=== PATIENT | female | born 1965 | race Caucasian/White ===

== ENCOUNTER → 2018-05-17 | Day surgery (SDC) | payer OTHER ==
--- NOTE | 2018-05-19 08:34 | PATH ---
Cytology Non-Gynecological Report Patient Name: FREEMAN GOMEZ [facility]. Rec. #: [id number] /Age/Gender: 1965 (Age: 52) / F Account: [id number] Location: RADIOLOGY Taken: 05/17/2018 Received: 05/17/2018 Reported: 05/19/2018 Physicians: Cathleen Buenrostro M.D. Specimen(s) Received RIGHT THYROID 3.10 X 1.17 X 1.40CM. Clinical History Thyroid nodule Final Diagnosis THYROID, RIGHT, FINE NEEDLE ASPIRATION: SATISFACTORY FOR EVALUATION [place] CLASS II: BENIGN CYTOLOGIC FINDINGS ARE CONSISTENT WITH A BENIGN FOLLICULAR NODULE. SMALL FOLLICULAR CELLS, HURTHLE CELLS, MACROPHAGES, AND COLLOID PRESENT. Electronically Signed Nakia Castellanos M.D. Gross Description Received are eight direct smears, four of which are air-dried and Diff-Quik stained, and four of which are alcohol fixed and Pap stained. Also received is 20 ml of bloody formalin from which one cellblock is prepared.
== END | disposition home or self-care (01) ==
LOC: JRADIR 08:25
PROVIDERS: ATTEND Internal Medicine Endocrinology, Diabetes & Metabolism
PROC: 0G9G3ZX Drainage of Left Thyroid Gland Lobe, Percutaneous Approach, Diagnostic (ICD-10-PCS; principal; 2018-05-17)
DX: E04.1 Nontoxic single thyroid nodule (principal)
CPT/HCPCS: 76942; 88173; 88305-TC

== ENCOUNTER 2019-11-15 01:54 | Emergency (ER) | payer OTHER ==
--- NOTE | 2019-11-15 02:15 | PDOC ---
History of Present Illness - General Stated Complaint: R HAND SWELLING Time Seen by Provider: 11/15/19 02:15 - History of Present Illness Initial Comments: HPI: 54-year-old female with history of hypertension and hypothyroidism presenting with right hand redness and swelling. Patient reports she first felt itching in her left hand Wednesday at 3 AM. The area has worsening redness and swelling that she noticed last night with streaking extending up her arm. Denies recent trauma to the area. May have been bitten by an insect but denies significant outdoor exposure. No new known exposures: no new lotions, detergents, clothing, animals, or environments. No fevers, chills, chest pain, or shortness of breath. ROS: Constitutional: no fever, no chills HEENT: no throat pain, no dysphagia Cardiovascular: no chest pain, no palpitations Respiratory: no cough, no shortness of breath Gastrointestinal: no abdominal pain, no nausea Genitourinary: no dysuria, no hematuria Musculoskeletal: no myalgia, no arthralgia Skin: +rash, +itching Neurologic: no headache, no weakness PE: General: Awake, alert, and fully oriented, in no acute distress Head: No signs of trauma Eyes: EOMI, sclera anicteric ENT: Moist mucus membranes Neck: Normal ROM, supple Lungs: Lungs clear, Normal breath sounds Cardio: Regular rhythm, S1 and S2 present Abdomen: Soft, nontender. No guarding, no rebound, no masses Extremities: Normal range of motion, Distal pulses present SKIN: Extensor surface of hand erythematous/indurated/warm overlying the second digit and metacarpals with lymphangitic streaking up the forearm, pinpoint lesion noted on lateral aspect of second digit which may represent possible injection site such as from an insect bite Otherwise warm, Dry, normal turgor Neurologic: Cranial nerves II through XII grossly intact. Normal speech ED Course/MDM: DDX including but not limited to cellulitis, abscess, paronychia, felon, compartment syndrome Labs Clindamycin As we are without a hand specialist at this hospital, decision made to transfer patient to another facility as we are concerned for possible hand abscess 11/15/19 02:15 Dr. Clayton discussed case with hand specialist at [place]. Patient accepted for transfer CBC WBC 8.8 K/mm3 (4.0-10.0) 11/15/19 03:15 RBC 4.87 M/mm3 (3.60-5.2) 11/15/19 03:15 Hgb 13.0 GM/dL (10.7-15.3) 11/15/19 03:15 Hct 40.3 % (32.4-45.2) 11/15/19 03:15 MCV 82.9 fl (80-96) 11/15/19 03:15 MCH 26.8 pg (25.7-33.7) 11/15/19 03:15 MCHC 32.3 g/dl (32.0-36.0) 11/15/19 03:15 RDW 15.1 % (11.6-15.6) 11/15/19 03:15 Plt Count 253 K/MM3 (134-434) 11/15/19 03:15 MPV 9.2 fl (7.5-11.1) 11/15/19 03:15 Absolute Neuts (auto) 4.8 K/mm3 (1.5-8.0) 11/15/19 03:15 Neutrophils % 54.8 % (42.8-82.8) D 11/15/19 03:15 Lymphocytes % 34.2 % (8-40) D 11/15/19 03:15 Monocytes % 7.6 % (3.8-10.2) 11/15/19 03:15 Eosinophils % 3.1 % (0-4.5) D 11/15/19 03:15 Basophils % 0.3 % (0-2.0) 11/15/19 03:15 Nucleated RBC % 0 % (0-0) 11/15/19 03:15 No leukocytosis CMP Sodium 142 mmol/L (136-145) 11/15/19 03:15 Potassium 4.0 mmol/L (3.5-5.1) 11/15/19 03:15 Chloride 108 mmol/L (98-107) H 11/15/19 03:15 Carbon Dioxide 27 mmol/L (21-32) 11/15/19 03:15 Anion Gap 6 MMOL/L (8-16) L 11/15/19 03:15 BUN 15.1 mg/dL (7-18) 11/15/19 03:15 Creatinine 1.0 mg/dL (0.55-1.3) 11/15/19 03:15 Est GFR (CKD-EPI)AfAm 73.45 11/15/19 03:15 Est GFR (CKD-EPI)NonAf 63.37 11/15/19 03:15 Random Glucose 107 mg/dL (74-106) H 11/15/19 03:15 Calcium 9.1 mg/dL (8.5-10.1) 11/15/19 03:15 Total Bilirubin 0.1 mg/dL (0.2-1) L 11/15/19 03:15 AST 20 U/L (15-37) 11/15/19 03:15 ALT 27 U/L (13-61) 11/15/19 03:15 Alkaline Phosphatase 119 U/L (45-117) H 11/15/19 03:15 Total Protein 7.9 g/dl (6.4-8.2) 11/15/19 03:15 Albumin 3.7 g/dl (3.4-5.0) 11/15/19 03:15 Electrolytes unremarkable Hand xray as read by radiology: "Right hand: Swelling. Pain. 3 views of the right hand to been submitted. There is no history of trauma given. There is dorsal soft tissue swelling. A gross fracture or subluxation is not seen. There is no sign of blastic or lytic changes. A foreign body or soft tissue air is visualized. If symptoms persist, further imaging may be of help. Reported By: Amrit Gay MD 11/15/19 [id number] " Past History - Past Medical History Allergies/Adverse Reactions: Allergies Allergy/AdvReac Type Severity Reaction Status Date / Time No Known Allergies Allergy Verified 11/15/19 02:16 Home Medications: Ambulatory Orders Levothyroxine [Synthroid -] 25 mcg PO DAILY 11/15/19 Losartan Potassium 100 mg PO DAILY 11/15/19 - Immunization History Immunization Up to Date: Yes - Psycho Social/Smoking Cessation Hx Smoking History: Never smoked Hx Alcohol Use: No ED Treatment Course - LABORATORY CBC & Chemistry Diagram: 11/15/19 03:15 11/15/19 03:15 Discharge - Discharge Information Problems reviewed: Yes Clinical Impression/Diagnosis: Cellulitis of hand, right Condition: Guarded Disposition: TRANSFER ACUTE CARE/OTHER HOSP - Follow up/Referral Referrals: Pinky Horton MD [Primary Care Provider] - - Patient Discharge Instructions - Post Discharge Activity
--- NOTE | 2019-11-15 02:17 | PDOC ---
Attending Attestation - Resident Resident Name: Charity Remy - ED Attending Attestation I have performed the following: I have examined & evaluated the patient, The case was reviewed & discussed with the resident, I agree w/resident's findings & plan - HPI HPI: 11/15/19 03:26 see resident hpi - Physicial Exam PE: 11/15/19 03:26 agree with resident exam - Medical Decision Making 11/15/19 03:30 54-year-old female with exam possibly consistent with hand abscess, extensor surface Will transfer to [facility] for evaluation, patient accepted by hand surgery to the emergency department for evaluation IV established, x-ray done and clindamycin administered
[2019-11-15 02:19] VITALS: BMI 30.2
[2019-11-15] MEDS ORDERED: ACETAMINOPHEN 325 MG TABLET (FP) PO ONE (02:41)
[2019-11-15] MEDS ORDERED: CLINDAMYCIN 600MG PREMIX IVPB 600 MG/50 ML BAG IVPB ONE ×2 (02:42→02:48)
[2019-11-15] MEDS ORDERED: ACETAMINOPHEN 325 MG TABLET (FP) ONE (02:48)
[2019-11-15 03:28] LABS: BASO % 0.3 % (0-2.0); EOS % 3.1 % (0-4.5); HEMATOCRIT 40.3 % (32.4-45.2); LYMPH % 34.2 % (8-40); MCH 26.8 pg (25.7-33.7); MCHC 32.3 g/dl (32.0-36.0); MEAN CELL VOLUME 82.9 fl (80-96); MEAN PLT VOLUME 9.2 fl (7.5-11.1); MONO % 7.6 % (3.8-10.2); NEUT % 54.8 % (42.8-82.8); PLATELET COUNT 253 K/MM3 (134-434); RBC 4.87 M/mm3 (3.60-5.2); RDW 15.1 % (11.6-15.6); WHITE BLOOD COUNT 8.8 K/mm3 (4.0-10.0)
[2019-11-15 03:36] VITALS: BP 131/86; PULSE 86
[2019-11-15 03:40] LABS: INR 1.05 (0.83-1.09); PROTHROMBIN TIME (PATIENT) 12.4 SEC (9.7-13.0)
[2019-11-15 03:47] VITALS: TEMP 98.3
[2019-11-15 03:55] LABS: ALBUMIN 3.7 g/dl (3.4-5.0); BILIRUBIN,TOTAL 0.1 mg/dL (0.2-1); BLOOD UREA NITROGEN 15.1 mg/dL (7-18); CALCIUM 9.1 mg/dL (8.5-10.1); TOT PROT 7.9 g/dl (6.4-8.2)
== END 2019-11-15 03:47 | disposition short-term general hospital (02) ==
LOC: JER 01:54
DX: L03.113 Cellulitis of right upper limb (principal); I10 Essential (primary) hypertension; E03.9 Hypothyroidism, unspecified
CPT/HCPCS: 36415; 73130-TC-RT-FY; 80053; 85025; 85610; 99283-25

== ENCOUNTER 2020-09-03 14:07 | Emergency (ER) | payer OTHER ==
--- NOTE | 2020-09-03 14:16 | PDOC ---
Rapid Medical Evaluation Time Seen by Provider: 09/03/20 14:12 Medical Evaluation: Allergies Allergy/AdvReac Type Severity Reaction Status Date / Time No Known Allergies Allergy Verified 11/15/19 02:16 09/03/20 14:15 54 year old female preDM HTN (last dose this AM) complaining of lightheadness and near syncopal event at work. PE: CTA RRR CN 2-12 grossly intact Plan: EKG Labs Imaging differed to ED provider Pt to precede to ED for further eval
[2020-09-03 14:41] VITALS: BMI 30.2
--- OUTSIDE RECORDS SUMMARY | 2020-09-03 15:14 | XMS ---
:1965 Author Organization [facility] Care Team Providers Name Role Phone FRANCIS VICENTE Unavailable Unavailable Fabiana Berman MD Unavailable Unavailable Fabiana Berman MD Unavailable Unavailable EMERGENCY SERVICE, X Unavailable Unavailable Re-disclosure Warning The records that you are about to access may contain information from federally- assisted alcohol or drug abuse programs. If such information is present, then the following federally mandated warning applies: This information has been disclosed to you from records protected by federal confidentiality rules (42 CFR part 2). The federal rules prohibit you from making any further disclosure of this information unless further disclosure is expressly permitted by the written consent of the person to whom it pertains or as otherwise permitted by 42 CFR part 2. A general authorization for the release of medical or other information is NOT sufficient for this purpose. The Federal rules restrict any use of the information to criminally investigate or prosecute any alcohol or drug abuse patient.The records that you are about to access may contain highly sensitive health information, the redisclosure of which is protected by Article 27-F of the [place] Public Health law. If you continue you may haveaccess to information: Regarding HIV / AIDS; Provided by facilities licensed or operated by the [facility] Office of Mental Health; or Provided by the [facility] Office for People With Developmental Disabilities. If such information is present, then the following [facility] mandated warning applies: This information has been disclosed to you from confidential records which are protected by state law. State law prohibits you from making any further disclosure of this information without the specific written consent of the person to whom it pertains, or as otherwise permitted by law. Any unauthorized further disclosure in violation of state law may result in a fine or senior care sentence or both. A general authorization for the release of medical or other information is NOT sufficient authorization for further disclosure. Allergies and Adverse Reactions Type Description Substance Reaction Status Data Source(s ) Drug allergy No Known Drug No Known Drug [facility] Allergies Allergies Health Care [facility] Encounters Encounter Providers Location Date Indications Data Source(s ) Inpatient Attender: 11/15/2019 RIGHT HAND [place] Co unty JULES, 07:33:00 AM [facility] VADIMAdmitter: EST - Corporatio n JULES, 11/17/2019 VADIMReferrer: 01:20:00 PM FRANCIS VICENTE EST RIGHT HAND LYMPHANGITIS Patient admitted. Emergency Attender: JULES, 11/15/2019 SWOLLEN FINGER [facility] VADIMAttender: 04:19:00 AM EST [facility] EMERG[facility] SERVICE, Corpor ation XAdmitter: FRANCIS VICENTE SWOLLEN FINGER INPATIENT Attender: Fabiana [place] 11/15/2019 [place] (Helder Berman MD [facility] 12:00:00 AM EST [facility] - 11/15/2019 [facility]) 12:00:00 AM EST Attender: [facility] 11/15/2019 CHARLEY ( Helder Berman MD 12:00:00 AM EST [facility] ) Medications Medication Brand Start Product Dose Route Administrative Pharmacy [facility] Indications Reaction Description Data Name Date Form Instructions Instructions Source(s) 0.9% NaCl 0.9% 999 UNK active 0.9% NaCl [facility] IV NaCl 2019 mL IV [facility] IV 05:14: 1000 mL; IV Health 47 AM rate: [facility] EST over 30 Corporatio minutes n Medication administered onsite Insurance Providers Payer name Policy type Policy ID Covered Covered libertarian's Policy P fredis / Coverage libertarian ID relationship to Ann Inf ormation type ann LOCAL 2027 - [id number] [facility] Problems, Conditions, and Diagnoses Code Display Name Description Problem Type Effective Data Sour ce(s) Dates E03.9 Hypothyroidism, HYPOTHYROIDISM, Diagnosis 11/17/2019 [place] unspecified UNSPECIFIED 01:20:00 PM [facility] EST Care Corporati on I10 Essential ESSENTIAL Diagnosis 11/17/2019 [place] (primary) (PRIMARY) 01:20:00 PM [facility] hypertension HYPERTENSION EST Care Corpo ration I89.1 Lymphangitis LYMPHANGITIS Diagnosis 11/15/2019 [facility] r 07:33:00 AM [facility] EST Care Corporati on Surgeries/Procedures Procedure Description Date Indications Data Source(s) SUBSEQUENT HOSPITAL CARE 11/16/2019 NEX TGEN ([place] 12:00:[facility] AM [facility] 12:00:00 AM EST INPATIENT CONSULTATION 11/15/2019 NEXTG EN ([place] 12:00:00 AM EST [facility] 12:00:00 AM EST Results ID Date Data Source [id number] 06/27/2020 09:00:00 PM EDT [facility] Name Value Range Interpretation Description Data Sup porting Code Source(s) Document(s ) SARS [facility] coronavirus 2 RNA [Presence] in Respiratory specimen by JAYDE with probe detection This lab was ordered by [facility] COVID-19 and reported by [facility]. ID Date Data Source [id number] 06/10/2020 10:00:00 PM EDT [facility] Name Value Range Interpretation Code Description Data Violeta rce(s) Supporting Document(s ) SARS-CoV-2 [facility] BY PCR This lab was ordered by IM[facility] Darnell C and reported by [employer]. ID Date Data Source [id number] 06/06/2020 12:00:00 AM EDT [facility] Name Value Range Interpretation Code Description Data Violeta rce(s) Supporting Document(s ) 2018-nCoV [facility] RNA XXX JAYDE+probe- Imp This lab was ordered by [employer] and reported by [employer] ID Date Data Source [id number] 04/26/2020 12:00:00 AM EDT [facility] Name Value Range Interpretation Code Description Data Violeta rce(s) Supporting Document(s ) 2018-nCoV [facility] RNA XXX JAYDE+probe- Imp This lab was ordered by [facility] and reported by [employer]. ID Date Data Source [id number] 11/17/2019 07:14:00 AM EST [facility] [id number] Corporation Name Value Range Interpretation Description Data Sup porting Code Source(s) Document(s ) Leukocytes 8.3 k/mm3 4.8-10 <td> 11/17/2019 [place] [#/volume] in .8 07:14</td><td> [facility] Blood by k/mm3 WBC </td><td> Health Care Automated count Corporation 8.3
(4.8-10.8) k/mm3 </td> Erythrocytes 4.65 m/mm3 3.90-5 <td> 11/17/2019 [facility] [#/volume] in .20 07:14</td><td> [facility] Blood m/mm3 RBC </td><td> Health Care Danger 4.65
(3.90-5.20) m/mm3 </td> Hemoglobin 12.3 g/dL 12.0-1 <td> 11/17/2019 [place] [Mass/volume] 6.0 07:14</td><td> [facility] in Blood g/dL HGB </td><td> Health Care Corporation 12.3
(12.0-16.0) g/dL </td> Hematocrit 39.8 % 37.0-4 <td> 11/17/2019 [place] [Volume 7.0 % 07:14</td><td> [facility] Fraction] of HCT </td><td> Health Care Blood by Corporation Automated count 39.8
(37.0-47.0) % </td> Erythrocyte 85.6 fL 81.0-9 <td> 11/17/2019 [place] mean 9.0 fL 07:14</td><td> [facility] corpuscular MCV </td><td> Health Care volume [[employer] Corporation volume] by 85.6 Automated count
(81.0-99.0) fL </td> Erythrocyte 26.5 pg 27.0-3 <td> 11/17/2019 [place] mean 1.5 pg 07:14</td><td> [facility] corpuscular [facility] Health Care hemoglobin </td><td><[employer] [Entitic mass] raph by Automated styleCode="Bold count "> 26.5 L </paragraph>
(27.0-31.5) pg </td> Erythrocyte 30.9 % 32.0-3 <td> 11/17/2019 [place] mean 6.0 % 07:14</td><td> [facility] corpuscular [facility] Health Care hemoglobin </td><td><[employer] concentration raph [Mass/volume] styleCode="Bold in Blood from "> Fetus by 30.9 Automated count L </paragraph>
(32.0-36.0) % </td> Platelets 247 k/mm3 160-41 <td> 11/17/2019 [place] [#/volume] in 0 07:14</td><td> [facility] Blood by k/mm3 Platelet Count Health Care Automated count </td><td> Danger 247
(160-410) k/mm3 </td> Erythrocyte 15.0 % 11.5-1 <td> 11/17/2019 [place] distribution 4.5 % 07:14</td><td> County width [Entitic RDW Health Care volume] by </td><td><[employer] Automated count raph styleCode="Bold "> 15.0 H </paragraph>
(11.5-14.5) % </td> Platelet mean 11.2 fL 9.8-12 <td> 11/17/2019 [facility] r volume [Entitic .8 fL 07:14</td><td> County volume] in MPV </td><td> Health Care Blood by Danger Automated count 11.2
(9.8-12.8) fL </td> Lymphocytes 28.3 % 17.0-5 <td> 11/15/2019 [place] [#/volume] in 0.0 % 06:15</td><td> [facility] Blood by Lymphocytes Health Care Automated count </td><td> Corporation 28.3
(17.0-50.0) % </td> Immature 0.1 % 0.0-0. <td> 11/15/2019 [place] granulocytes/10 5 % 06:15</td><td> County 0 leukocytes in IG% </td><td> [facility] Blood by Danger Automated count 0.1
(0.0-0.5) %
The IG fraction represents metamyelocytes, myelocytes and/or
promyelocytes and is only reported as part of the automated
differential when found at a percentage of less than 6.
If higher than 6%, a manual differential will be performed.

(0.0-0.5) % </td> Monocytes/Leuko 7.1 % 0.0-11 <td> 11/15/2019 [facility] cytes [Pure .0 % 06:15</td><td> [facility] number Monocytes. Health Care fraction] in </td><td> [facility] Blood by Automated count 7.1
(0.0-11.0) % </td> Basophils 0.2 % 0.0-2. <td> 11/15/2019 [place] [#/volume] in 0 % 06:15</td><td> [facility] Blood by Basophils [facility] Automated count </td><td> Danger 0.2
(0.0-2.0) % </td> Basophils+Eosin 2.5 % 0.0-5. <td> 11/15/2019 [facility] ophils+Monocyte 0 % 06:15</td><td> [facility] s [#/volume] in Eosinophils [facility] Blood by </td><td> Danger Automated count 2.5
(0.0-5.0) % </td> Glucose 106 mg/dL 70-105 <td> 11/17/2019 [place] [Mass/volume] mg/dL 07:14</td><td> [facility] in Blood Glucose-Serum [facility] </td><td><shreyas Danger raph styleCode="Bold "> 106 H </paragraph>
(70-105) mg/dL </td> Neutrophils [#] 61.8 % 40.0-7 <td> 11/15/2019 [facility] in Body fluid 6.0 % 06:15</td><td> County by Manual count Neutrophils Health Care </td><td> Danger 61.8
(40.0-76.0) % </td> Carbon dioxide, 24 mEq/L 22-30 <td> 11/17/[address] [facility] ter total mEq/L 07:14</td><td> County [Moles/volume] CO2 </td><td> Health Car e in Serum or Corporation Plasma 24
(22-30) mEq/L </td> Potassium 3.9 mEq/L 3.5-5. <td> 11/17/2019 [place] [Moles/volume] 1 07:14</td><td> County in Serum or mEq/L Potassium-Serum Health Care Plasma </td><td> Danger 3.9
(3.5-5.1) mEq/L </td> Urea nitrogen 11 mg/dL 6-22 <td> 11/17/2019 [facility] r [Mass/volume] mg/dL 07:14</td><td> County in Blood BUN </td><td> Health Care Corporation 11
(6-22) mg/dL </td> Sodium 140 mEq/L 135-14 <td> 11/17/2019 [place] [Moles/volume] 5 07:14</td><td> County in Serum or mEq/L Sodium-Serum Health Care Plasma </td><td> Danger 140
(135-145) mEq/L </td> Creatinine 0.75 mg/dL 0.57-1 <td> 11/17/2019 [place] [Moles/volume] .11 07:14</td><td> County in Serum or mg/dL Creatinine. Health Care Plasma </td><td> Danger 0.75
(0.57-1.11) mg/dL </td> Chloride 110 mEq/L 98-107 <td> 11/17/2019 [place] [Moles/volume] mEq/L 07:14</td><td> County in Serum or Chloride Health Care Plasma </td><td><[employer]reyas Corporation raph styleCode="Bold "> 110 H </paragraph>
(98-107) mEq/L </td> Bilirubin.total 0.2 mg/dL 0.2-1. <td> 11/15/2019 [facility] [Mass/volume] 3 06:15</td><td> County in Blood mg/dL Bilirubin - [employer] </td><td> 0.2
(0.2-1.3) mg/dL </td> Alanine 17 U/L 6-55 <td> 11/15/2019 [place] aminotransferas U/L 06:15</td><td> County e [Enzymatic ALT (SGPT) Health Care activity/volume </td><td> Danger ] in Serum or Plasma 17
(6-55) U/L </td> Albumin 3.9 g/dL 3.4-4. <td> 11/15/2019 [place] [Mass/volume] 8 g/dL 06:15</td><td> [facility] in Serum or Albumin Health Care Plasma </td><td> Danger 3.9
(3.4-4.8) g/dL </td> Aspartate 18 U/L 4-35 <td> 11/15/2019 [place] aminotransferas U/L 06:15</td><td> County e [Enzymatic AST (SGOT) Health Care activity/volume </td><td> Danger ] in Serum or Plasma 18
(4-35) U/L </td> Proteins - 7.6 g/dL 6.4-8. <td> 11/15/2019 [place] Total 3 g/dL 06:15</td><td> [facility] Proteins - [employer] </td><td> 7.6
(6.4-8.3) g/dL </td> Globulin 3.7 gm/dL 2.9-4. <td> 11/15/2019 [place] [Mass/volume] 0 06:15</td><td> [facility] in Serum gm/dL Globulin Health Care </td><td> Danger 3.7
(2.9-4.0) gm/dL </td> Hemolysis index No <td> 11/17/2019 [facility] of Serum or Hemolysis 07:14</td><td> [facility] Plasma Hemolysis Index Health Care </td><td> Danger No Hemolysis
</td> Anion gap in 6 mEq/L 7-13 <td> 11/17/2019 [place] Serum or Plasma mEq/L 07:14</td><td> [facility] Anion Gap Health Care </td><td><shreyas Corporation raph styleCode="Bold "> 6 L </paragraph>
(7-13) mEq/L </td> Calcium 8.6 mg/dL 8.6-10 <td> 11/17/2019 [place] [Mass/volume] .2 07:14</td><td> [facility] in Blood mg/dL Calcium [facility] </td><td> Danger 8.6
(8.6-10.2) mg/dL </td> Lipemic index No Lipemia <td> 11/17/2019 [facility] er of Serum or 07:14</td><td> [facility] Plasma Lipemia Index Health [facility] </td><td> Danger No Lipemia
</td> Icteric index Not <td> 11/17/2019 [facility] of Serum or Icteric 07:14</td><td> [facility] Plasma Icteric Index Health [facility] </td><td> Danger Not Icteric
</td> aPTT panel - 31.4 secs 25.0-3 <td> 11/15/2019 [place] Platelet poor 2.0 06:15</td><td> [facility] plasma secs Partial [facility] Thromboplastin [facility] Time </td><td> 31.4
(25.0-32.0) secs </td> Appearance of Clear <td> 11/15/2019 [facility] r Urine 06:15</td><td> [facility] Appearance Health Care </td><td> Danger Clear
(CLEAR) </td> Specific 1.013 {} 1.000- <td> 11/15/2019 [place] gravity of 1.035 06:15</td><td> [facility] Urine by Test Specific Health Care strip [employer] </td><td> 1.013
(1.000-1.035) </td> Prothrombin 11.0 secs 9.8-12 <td> 11/15/2019 [place] time (PT) .0 06:15</td><td> County secs Prothrombin Health Care Time. Corporation </td><td> 11.0
(9.8-12.0) secs </td> Protein Negative <td> 11/15/2019 [place] [Presence] in 06:15</td><td> [facility] Urine by Protein Health Care Automated test Qualitative Corporation strip </td><td> Negative
(NEGATIVE) </td> Glucose Negative <td> 11/15/2019 [place] [Presence] in 06:15</td><td> [facility] Urine by Test Glucose_ Health Care strip </td><td> Corporation Negative
(NEGATIVE) </td> Urobilinogen 0.2 mg/dL 0.0-2. <td> 11/15/2019 [place] [Presence] in 0 06:15</td><td> [facility] Urine by mg/dL Urobilinogen Health Care Automated test </td><td> Corporation strip 0.2
(0.0-2.0) mg/dL </td> Leukocyte Negative <td> 11/15/2019 [place] esterase 06:15</td><td> [facility] [Presence] in Leukocytes Health Care Urine by Test Esterase Corporation strip </td><td> Negative
(NEGATIVE) </td> Erythrocytes 2 /HPF 0-2 <td> 11/15/2019 [place] [#/area] in /HPF 06:15</td><td> [facility] Urine sediment RBC </td><td> Health Car e by Automated Corporation count 2
(0-2) /HPF </td> Nitrite Negative <td> 11/15/2019 [place] [Presence] in 06:15</td><td> [facility] Urine by Test Nitrites Health Care strip </td><td> Corporation Negative
(NEGATIVE) </td> Leukocytes 1 /HPF 0-5 <td> 11/15/2019 [place] [Presence] in /HPF 06:15</td><td> [facility] Urine by WBC </td><td> Health Care Automated Corporation 1
(0-5) /HPF </td> Epithelial RARE <td> 11/15/2019 [place] cells [#/area] <= FEW 06:15</td><td> [facility] in Urine Epithelial Health Care sediment by Cells Corporation Automated count </td><td> RARE
/LPF
<= FEW

/LPF </td> Bacteria NONE SEEN <td> 11/15/2019 [place] [#/area] in 06:15</td><td> [facility] Urine sediment Bacteria Health Care by Microscopy </td><td> Corporation high power field NONE SEEN
(NONE) /HPF </td> Mucous RARE <td> 11/15/2019 [place] <= FEW 06:15</td><td> [facility] Mucous Health Care </td><td> Corporation RARE
/LPF
<= FEW

/LPF </td> ID Date Data Source [id number] 11/16/2019 11:56:00 AM EST [facility] [id number] Corporation Name Value Range Interpretation Description Data Sup porting Code Source(s) Document(s ) Soft (PACSIMAGE <td> [place] Tissue 11/16/2019 [facility] Mass Body ) Final 11:56</td><td> Care US Result Soft Tissue Corporation Name: Charli GOMEZ Body US MILLARD MRN: </td><td><para [id number] Sex: F graph : styleCode="Tana 1965 lics">(PACSIMA Location: F GE Admitting Physician: )</paragraph>< FRANCIS br/>
JULES Final Result Requesting Physician:

FREDO Name: RORO GOMEZ Exam: US SOFT
TISSUE MASS BODY Sex: F 11/16/2019
12:43 : Grayscale 1965 color Location: F ultrasound of
the right Admitting index finger. Physician: HISTORY: FRANCIS Right hand PISARENKO lymphangitis.
Requesting Comparison: Physician: There are no FREDO prior RORO examinations

available for Exam: US comparison. SOFT TISSUE Findings: MASS BODY There is 11/16/2019 mild 12:43 subcutaneous edema of the

<br/ right second > digit. At Grayscale the area of color clinical ultrasound of concern at the the right dorsal aspect index finger. of the right middle

phalanx, there HISTORY: Right is a 1.1 x 0.3 hand x 0.8 cm lymphangitis. hypoechoic collection

with no Comparison: internal color There are no flow within prior the examinations subcutaneous available for fat. comparison. IMPRESSION: Hypoechoic

<br/ fluid > collection at Findings: the dorsal
aspect of the There is mild right middle subcutaneous phalanx with edema of the surrounding right second subcutaneous digit. At edema
concerning the area of for small clinical abscess. concern at the Resident dorsal aspect Radiologist: of the right Shivam Powers MD
Resident middle Radiologist phalanx, there Attending is a 1.1 x 0.3 Radiologist: x 0.8 cm Aimee hawthorneechoic collection Finalizing
Radiologist: with no Aimee Galloway internal color flow within Transcribed the Date: subcutaneous 11/16/2019 fat. 12:38

Finalized IMPRESSION: Date: 11/16/2019

19:43 Hypoechoic fluid collection at the dorsal aspect of the right
middle phalanx with surrounding subcutaneous edema concerning
for small abscess.

<br/ >
Resident Radiologist: Shivam Powers MD Resident Radiologist
Attending Radiologist: Aimee Galloway MD
Finalizing Radiologist: Aimee Galloway MD
Transcribed Date: 11/16/2019 12:38
Finalized Date: 11/16/2019 19:43

</td > ID Date Data Source [id number] 11/15/2019 06:15:00 AM EST [facility] [id number] Corporation Name Value Range Interpretation Description Data Source(s ) Supporting Code Document(s ) ABO-Rh Type O POS <td> [place] 11/15/2019 [facility] 06:15</td><td> Care ABO-Rh Type Corporation </td><td> O POS
</td> Specimen 11/18/20 <td> [place] expiration 19 23:59 11/15/2019 [facility] date of Blood 06:15</td><td> Care Specimen Corporation Expiration Date </td><td> 11/18/2019 23:59
</td> Antibody NEG <td> [place] Screen 11/15/2019 [facility] 06:15</td><td> Care Antibody Corporation Screen </td><td> NEG
</td> Procedure Vital Signs ID Date Data Source UNK Name Value Range Interpretation Code Description Data Source(s) Diastolic blood 82 {} Normal (applies to 82 {} [place] pressure non-numeric results) Coun ty Health Care Corporati on Systolic blood 127 {} Normal (applies to 127 {} [place] pressure non-numeric results) Coun ty Health Care Corporati on First Respiration 18.0000 {} Normal (applies to 18.0000 {} [place] rate Set non-numeric results) Coun ty Health Care Corporati on Heart rate 87.0000 {} Normal (applies to 87.0000 {} [place] non-numeric results) Coun ty Health Care Corporati on Body temperature 98.1000 {} Normal (applies to 98.1000 {} [place] non-numeric results) Coun ty Health Care Corporati on Diastolic blood 79 {} Normal (applies to 79 {} [place] pressure non-numeric results) Coun ty Health Care Corporati on Systolic blood 123 {} Normal (applies to 123 {} [place] pressure non-numeric results) Coun ty Health Care Corporati on First Respiration 19.0000 {} Normal (applies to 19.0000 {} [place] rate Set non-numeric results) Coun ty Health Care Corporati on Heart rate 80.0000 {} Normal (applies to 80.0000 {} [place] non-numeric results) Coun ty Health Care Corporati on Body temperature 97.5000 {} Normal (applies to 97.5000 {} [place] non-numeric results) Coun ty Health Care Corporati on wt - obtain Normal (applies to {} [facility] results[facility] Coun ty Health Care Corporati on weight - kg 78.6000 {} Normal (applies to 78.6000 {} [facility] Coun ty Health Care Corporati on Patient Treatment Plan of Care Planned Activity Planned Date Details Description Data Source (s) 0.9% NaCl IV 11/15/2019 05:14:47 AM [facility] Care Corporatio n
[2020-09-03 15:49] LABS: BASO % 0.2 % (0-2.0); EOS % 0.4 % (0-4.5); HEMOGLOBIN 12.9 GM/dL (10.7-15.3); LYMPH % 18.4 % (8-40); MCH 26.6 pg (25.7-33.7); MCHC 32.2 g/dl (32.0-36.0); MEAN CELL VOLUME 82.5 fl (80-96); MONO % 4.7 % (3.8-10.2); NEUT % 76.3 % (42.8-82.8); RBC 4.85 M/mm3 (3.60-5.2); RDW 15.1 % (11.6-15.6); WHITE BLOOD COUNT 11.2 K/mm3 (4.0-10.0)
--- NOTE | 2020-09-03 16:12 | PDOC ---
Attending Attestation - Resident Resident Name: SureshBarrera coats - ED Attending Attestation I have performed the following: I have examined & evaluated the patient, The case was reviewed & discussed with the resident, I agree w/resident's findings & plan - HPI HPI: 09/03/20 16:09 54-year-old female with history of hypertension presents with syncope. Patient was in her usual state of good health, was seated at work when she became lightheaded, put her head down, and then awoke on the floor. Bystanders noted she lost consciousness, they eased her to the ground and there was no trauma, she awoke feeling well and feels normal now. No injury, no chest pain or palpitations or shortness of breath, no seizure-like activity. Patient admits that she was slightly emotional prior to onset of symptoms, has had similar episodes in the past with negative work-up. Review of systems is otherwise negative and denies any recent dehydration or infectious complaints, has no exercise limitations at baseline. - Physicial Exam PE: 09/03/20 16:10 Vital signs stable Well-appearing seated comfortably in stretcher Exam is atraumatic Left eye cataracts, otherwise pupils equal round reactive to light, extraocular movements are intact, neck is supple Heart is regular without murmurs, lungs are clear, abdomen benign Neurological exam is normal Psychiatric exam is normal - Medical Decision Making 09/03/20 16:11 54-year-old healthy female presents with syncope with prodrome, possibly triggered by emotional cause, atypical for ACS. Hemodynamically stable here without other red flags on history or physical exam. Labs, urinalysis EKG, chest x-ray Troponin x2, monitoring If above is within normal limits, no indication for emergent admission, can follow-up with her PCP, Dr. Horton. Heart Score/ECG Review #1 ECG reviewed & interpreted by me at: 15:52 General ECG Interpretation: Sinus Rhythm (sinus arrhythmia noted), Normal Rate (66), Normal Intervals (qtc 427), No acute ischemic changes #2 ECG reviewed & interpreted by me at: 17:09 General ECG Interpretation: Sinus Rhythm (sinus arrhythmia noted), Normal Rate (68), Normal Intervals (qtc 418), No acute ischemic changes Discharge - Discharge Information Problems reviewed: Yes Clinical Impression/Diagnosis: Syncope Qualifiers: Syncope type: unspecified Qualified Code(s): R55 - Syncope and collapse Condition: Good - Follow up/Referral Referrals: Pinky Horton MD [Primary Care Provider] - - Patient Discharge Instructions - Post Discharge Activity
--- NOTE | 2020-09-03 16:34 | PDOC ---
History of Present Illness - General Chief Complaint: Syncope/Near Syncope Stated Complaint: SYNCOPE Time Seen by Provider: 09/03/20 14:12 - History of Present Illness Initial Comments: 09/03/20 14:59 54 yo F PMH HTN, hypothyroidism, presenting with syncope. Ms. Mccann states that she was at work talking with her partner when she began to feel lightheaded. Had colleagues open the window, felt sweaty all over. Put her head down on the desk, woke up on the floor with her legs above her head. Colleagues told her that she had passed out, but no fall or trauma. No post-ictal period. Currently asymptomatic. Notes that she had a similar episode 3 years ago. Further reports that she has had a lot of family stress recently. Currently feels well and has no complaints. ROS: GENERAL/CONSTITUTIONAL: endorses prior diaphoresis. Denies fever, chills,generalized weakness HEAD, EYES, EARS, NOSE AND THROAT: denies rhinorrhea, nasal congestion NEUROLOGIC: denies headache, focal weakness, dizziness, seizure, mental status changes CARDIOVASCULAR: endorses lightheadedness, syncope. Denies chest pain, palpitations, irregular heart rate, lightheadedness RESPIRATORY: denies cough, shortness of breath, dyspnea with exertion, wheezing GASTROINTESTINAL: denies abdominal pain, abdominal distension, nausea, vomiting, diarrhea, constipation GENITOURINARY: denies dysuria, frequency, urgency MUSCULOSKELETAL: denies myalgia, arthralgia, joint swelling, back pain, neck pain SKIN: denies rash, itching PE: Gen: well-developed, well-nourished, NAD Neuro: AAOX4, CN II-XII intact HEENT: atraumatic, normocephalic Neck: trachea midline, supple CV: regular rate, regular rhythm, no murmurs, rubs, or gallops Pulm: CTA b/l, no wheezing Abd: soft, non-distended, non-tender MSK: full ROM, intact pulses Extr: no edema, no deformities Skin: warm, dry MDM: Concern for ACS v vasovagal syncope. - CBC, CMP - EKG, trop - CXR - reassess 09/03/20 16:41 Labs unconcerning, trop negative. Will get repeat at 1800, likely dc if negative. 09/05/20 18:00 Repeat trop negative, dc'd for further outpatient management. Past History - Medical History Allergies/Adverse Reactions: Allergies Allergy/AdvReac Type Severity Reaction Status Date / Time No Known Allergies Allergy Verified 09/03/20 14:41 Home Medications: Ambulatory Orders Levothyroxine [Synthroid -] 25 mcg PO DAILY 11/15/19 Losartan Potassium 100 mg PO DAILY 11/15/19 COPD: No HTN: Yes - Immunization History Immunization Up to Date: Yes - Psycho-Social/Smoking History Smoking History: Never smoked *Physical Exam - Vital Signs Last Vital Signs Temp Pulse Resp BP Pulse Ox 98.2 F 80 18 114/78 98 09/03/20 14:30 09/03/20 14:30 09/03/20 14:30 09/03/20 14:30 09/03/20 15:00 ED Treatment Course - LABORATORY CBC & Chemistry Diagram: 09/03/20 15:25 09/03/20 15:25 - ADDITIONAL ORDERS Additional order review: 09/03/20 15:25 RBC 4.85 MCV 82.5 MCHC 32.2 RDW 15.1 Neutrophils % 76.3 D Lymphocytes % 18.4 D Monocytes % 4.7 Eosinophils % 0.4 D Basophils % 0.2 Discharge - Discharge Information Problems reviewed: Yes Clinical Impression/Diagnosis: Syncope Qualifiers: Syncope type: unspecified Qualified Code(s): R55 - Syncope and collapse Condition: Good Disposition: HOME - Follow up/Referral Referrals: Pinky Horton MD [Primary Care Provider] - - Patient Discharge Instructions Patient Printed Discharge Instructions: DI for Syncope in Adults (Fainting) Additional Instructions: Discharge Instructions: You were seen in the emergency department after fainting. No concerning abnormalities were found on your labs or EKG. Continue to take all of your regular home medications See your regular doctor as needed. Seek immediate care for any additional episodes of fainting, falls with injury, chest pain, difficulty breathing, neurological symptoms (eg one-sided weakness or numbness, facial droop, changes in your speech), or any other medical emergency. - Post Discharge Activity
[2020-09-03 16:38] LABS: ALBUMIN 3.8 g/dl (3.4-5.0); ALK PHOS 99 U/L (45-117); ANION GAP 10 MMOL/L (8-16); BILIRUBIN,TOTAL 0.2 mg/dL (0.2-1); BLOOD UREA NITROGEN 17.1 mg/dL (7-18); CALCIUM 9.1 mg/dL (8.5-10.1); CHLORIDE 104 mmol/L (98-107); CO2 24 mmol/L (21-32); CREATININE 0.7 mg/dL (0.55-1.3); GLUCOSE,RANDOM 135 mg/dL (74-106); POTASSIUM 4.7 mmol/L (3.5-5.1); SGOT/AST 26 U/L (15-37); SGPT/ALT 26 U/L (13-61); SODIUM 138 mmol/L (136-145)
[2020-09-03 17:31] LABS: INR 1.17 (0.83-1.09); PROTHROMBIN TIME (PATIENT) 13.8 SEC (9.7-13.0)
[2020-09-03 18:51] LABS: PLATELET ESTIMATE NORMAL
[2020-09-03 18:53] LABS: MEAN PLT VOLUME 10.3 fl (7.5-11.1); PLATELET COUNT 291 K/MM3 (134-434)
--- NOTE | 2020-09-03 19:22 | PDOC ---
*Physical Exam - Vital Signs Last Vital Signs Temp Pulse Resp BP Pulse Ox 98.2 F 80 18 114/78 98 09/03/20 14:30 09/03/20 14:30 09/03/20 14:30 09/03/20 14:30 09/03/20 15:00 ED Treatment Course - LABORATORY CBC & Chemistry Diagram: 09/03/20 15:25 09/03/20 15:25 - ADDITIONAL ORDERS Additional order review: Laboratory Results 09/03/20 09/03/20 15:25 15:25 PT with INR 13.80 H INR 1.17 H Sodium 138 Potassium 4.7 Chloride 104 Carbon Dioxide 24 Anion Gap 10 BUN 17.1 Creatinine 0.7 Est GFR (CKD-EPI)AfAm 113.05 Est GFR (CKD-EPI)NonAf 97.54 Random Glucose 135 H Calcium 9.1 Total Bilirubin 0.2 AST 26 ALT 26 Alkaline Phosphatase 99 Creatine Kinase 210 H Creatine Kinase Index No Result Required. CK-MB (CK-2) No Result Required. Troponin I < 0.02 Total Protein 8.0 Albumin 3.8 TSH 1.93 Free T4 1.12 09/03/20 15:25 RBC 4.85 MCV 82.5 MCHC 32.2 RDW 15.1 MPV 10.3 D Neutrophils % 76.3 D Lymphocytes % 18.4 D Monocytes % 4.7 Eosinophils % 0.4 D Basophils % 0.2 Medical Decision Making - Medical Decision Making 09/03/20 19:18 Sign out received from Dr Suresh. Romi Mccann is a 54yo woman with a PMH of HTN, hypothyroidism who presented with an episode of syncope at work after an emotional event. ED workup so far has been unremarkable. Pending repeat troponin, plan to discharge home if negative. 09/03/20 - Repeat trop negative - Will d/c home Discussed with Dr Milagros Sorto PGY3 Discharge - Discharge Information Problems reviewed: Yes Clinical Impression/Diagnosis: Syncope Qualifiers: Syncope type: unspecified Qualified Code(s): R55 - Syncope and collapse Condition: Good Disposition: HOME - Admission No - Follow up/Referral Referrals: Pinky Horton MD [Primary Care Provider] - - Patient Discharge Instructions Patient Printed Discharge Instructions: DI for Syncope in Adults (Fainting) Additional Instructions: Discharge Instructions: You were seen in the emergency department after faininting. No concerning abnormalities were found on your labs or EKG. Continue to take all of your regular home medications See your regular doctor as needed. Seek immediate care for any additional episodes of fainting, falls with injury, chest pain, difficulty breathing, neurological symptoms (eg one-sided weakness or numbness, facial droop, changes in your speech), or any other medical emergency. - Post Discharge Activity
[2020-09-03 19:52] VITALS: BP 135/70; PULSE 72; TEMP 97.9
--- NOTE | 2020-09-04 09:52 | EKG ---
Test Reason : Blood Pressure : / mmHG Vent. Rate : 066 BPM Atrial Rate : 066 BPM P-R Int : 150 ms QRS Dur : 082 ms QT Int : 408 ms P-R-T Axes : 063 055 040 degrees QTc Int : 427 ms SINUS RHYTHM WITH MARKED SINUS ARRHYTHMIA NONSPECIFIC ST ABNORMALITY ABNORMAL ECG WHEN COMPARED WITH ECG OF 16-JAN-2015 04:52, NO SIGNIFICANT CHANGE WAS FOUND Confirmed by MD Jerry, Thang ([id number]) on 09/04/2020 9:51:44 AM Referred By: Confirmed By:Thang Edwards MD
--- NOTE | 2020-09-04 09:52 | EKG ---
Test Reason : Blood Pressure : / mmHG Vent. Rate : 068 BPM Atrial Rate : 068 BPM P-R Int : 152 ms QRS Dur : 076 ms QT Int : 394 ms P-R-T Axes : 071 062 042 degrees QTc Int : 418 ms NORMAL SINUS RHYTHM WITH SINUS ARRHYTHMIA POSSIBLE LEFT ATRIAL ENLARGEMENT BORDERLINE ECG WHEN COMPARED WITH ECG OF 03-SEP-2020 15:52, NO SIGNIFICANT CHANGE WAS FOUND Confirmed by MD Jerry, Thang ([id number]) on 09/04/2020 9:51:35 AM Referred By: Confirmed By:Thang Edwards MD
== END 2020-09-03 20:45 | disposition home or self-care (01) ==
LOC: JER 14:07
DX: R55 Syncope and collapse (principal)
CPT/HCPCS: 36415; 71045-TC-FY; 80053; 82550; 82553; 84439; 84443; 84484; 85025; 85610; 93005; 93010; 99285-25

== ENCOUNTER 2022-10-18 06:17 | Emergency (ER) | payer OTHER ==
[2022-10-18 06:38] VITALS: BP 146/73; PULSE 92; RESP 20; TEMP 97.7; BMI 29.4
[2022-10-18 08:47] LABS: BASO % 0.6 % (0-2.0); EOS % 0.2 % (0-4.5); HEMATOCRIT 41.3 % (32.4-45.2); HEMOGLOBIN 13.4 GM/dL (10.7-15.3); LYMPH % 20.8 % (8-40); MCH 27.2 pg (25.7-33.7); MCHC 32.4 g/dl (32.0-36.0); MEAN CELL VOLUME 83.8 fl (80-96); MEAN PLT VOLUME 9.7 fl (7.5-11.1); MONO % 4.8 % (3.8-10.2); NEUT % 73.6 % (42.8-82.8); PLATELET COUNT 250 10^3/uL (134-434); RBC 4.92 M/mm3 (3.60-5.2); RDW 14.6 % (11.6-15.6); WHITE BLOOD COUNT 8.8 K/mm3 (4.0-10.0)
[2022-10-18 08:52] LABS: ALBUMIN 3.8 g/dl (3.4-5.0); BLOOD UREA NITROGEN 16.3 mg/dL (7-18)
[2022-10-18 08:55] LABS: CREATININE 0.8 mg/dL (0.55-1.3)
[2022-10-18 08:57] LABS: BILIRUBIN,TOTAL 0.2 mg/dL (0.2-1)
[2022-10-18 09:47] LABS: EPI CELLS 1 /uL (0-25.1); HYALINE CASTS 0 /uL (0-3.1); PH,URINE 5.5 (5.0-8.0); URINE APPEARANCE CLEAR; URINE BACTERIA 7 /uL (0-1359); URINE BILIRUBIN NEGATIVE (NEGATIVE); URINE COLOR YELLOW; URINE GLUCOSE (UA) NEGATIVE (NEGATIVE); URINE KETONE NEGATIVE (NEGATIVE); URINE LEUK ESTERASE NEGATIVE (NEGATIVE); URINE NITRITE NEGATIVE (NEGATIVE); URINE PROTEIN NEGATIVE (NEGATIVE); URINE RBC 27 /uL (0-23.9); URINE UROBILINOGEN 0.2 mg/dL (0.2-1.0); URINE WBC 2 /uL (0-25.8)
== END 2022-10-18 11:29 | disposition home or self-care (01) ==
LOC: JER 06:17
DX: M62.81 Muscle weakness (generalized) (principal)
CPT/HCPCS: 0241U-QW; 36415; 71046-TC-FY; 80053; 81003; 82962; 84484; 85025; 87086; 93005; 93010; 99285-25

== ENCOUNTER 2024-01-17 04:13 | Day surgery (SDC) | payer OTHER ==
[2024-01-11 14:07] VITALS: BMI 28.8
[2024-01-17] MEDS ORDERED: ceFAZolin SODIUM 1 GM VIAL ONE (06:33)
[2024-01-17] MEDS: ACETAMINOPHEN 500 MG TABLET (FP) PO ONE ×2 (06:40)
[2024-01-17] MEDS: PHENAZOPYRIDINE HCL 100 MG TABLET (FP) PO ONE ×2 (06:40)
[2024-01-17] MEDS ORDERED: PROPOFOL 20 ML ONE (06:52)
[2024-01-17] MEDS ORDERED: ROCURONIUM BROMIDE 50 MG/5 ML SYRINGE ONE ×2 (06:52→08:32)
[2024-01-17] MEDS ORDERED: MIDAZOLAM HCL 2 MG/2 ML SINGLE DOSE VIAL ONE (06:52)
[2024-01-17] MEDS ORDERED: HYDROmorphone HCl 2 MG/ML VIAL ONE (07:59)
[2024-01-17] MEDS: ceFAZolin SODIUM 1 GM VIAL IVPB ONE (08:01)
[2024-01-17] MEDS ORDERED: ePHEDrine SULFATE 50 MG/1 ML AMPULE ONE (08:15)
[2024-01-17] MEDS ORDERED: ONDANSETRON 4 MG/2 ML VIAL ONE (08:47)
[2024-01-17] MEDS ORDERED: PHENYLEPHRINE HCL 10 MG/1 ML SINGLE DOSE VIAL ONE (08:47)
[2024-01-17] MEDS ORDERED: DEXAMETHASONE SOD PHOSPHATE 4 MG/1 ML VIAL ONE (08:47)
[2024-01-17] MEDS ORDERED: KETOROLAC TROMETHAMINE 30 MG/1 ML VIAL ONE (08:47)
[2024-01-17] MEDS ORDERED: SUGAMMADEX SODIUM 200 MG/2 ML VIAL ONE (09:06)
[2024-01-17] MEDS ORDERED: ALBUTEROL SO4 0.083% IH SOL 2.5 MG/3 ML VIAL.NEB. NEB ONE (09:58)
[2024-01-17] MEDS: ALBUTEROL SO4 0.083% IH SOL 2.5 MG/3 ML VIAL.NEB. NEB ONE (10:00)
[2024-01-17] MEDS ORDERED: ONDANSETRON 4 MG/2 ML VIAL IVPUSH PRN ×2 (10:05→10:24)
[2024-01-17] MEDS: ACETAMINOPHEN 1000 MG/100 ML BAG IVPB ONE ×2 (10:15→12:15)
[2024-01-17] MEDS: LACTATED RINGERS SOLUTION 1,000 ML IV SCH (10:15)
[2024-01-17] MEDS ORDERED: SIMETHICONE 80 MG TAB.CHEW (FP) PO PRN (10:24)
[2024-01-17] MEDS ORDERED: oxyCODONE HCL 5 MG TABLET PO PRN ×2 (10:24)
[2024-01-17] MEDS ORDERED: BISACODYL 5 MG TABLET.DR (FP) PO PRN (10:24)
[2024-01-17] MEDS: CEFAZOLIN 2 GM in DEXTROSE 5%-WATER - 100 ML IVPB ONE (12:15)
[2024-01-17] MEDS: TRANEXAMIC ACID 1000 MG/10 ML VIAL IVPUSH ONE (12:15)
[2024-01-17] MEDS: ALBUTEROL SO4 2.5/IPRATROPIUM 0.5 INH SOL 3 ML VIAL.NEB. NEB ONE (12:16)
[2024-01-17] MEDS: ACETAMINOPHEN 325 MG TABLET (FP) PO SCH (12:17)
[2024-01-17] MEDS: CEFAZOLIN 1 GM in DEXTROSE 5%-WATER - 50 ML IVPB SCH (16:13)
[2024-01-17 17:59] LABS: HEMATOCRIT 38.7 % (32.4-45.2); HEMOGLOBIN 12.4 GM/dL (10.7-15.3); MCHC 32.1 g/dl (32.0-36.0); MEAN CELL VOLUME 84.2 fl (80-96); MEAN PLT VOLUME 9.4 fl (7.5-11.1); PLATELET COUNT 230 10^3/uL (134-434); RBC 4.59 M/mm3 (3.60-5.2); RDW 14.6 % (11.6-15.6); WHITE BLOOD COUNT 14.7 K/mm3 (4.0-10.0)
[2024-01-17 18:12] LABS: POTASSIUM 4.6 mmol/L (3.5-5.1)
[2024-01-17 18:15] LABS: CALCIUM 8.7 mg/dL (8.5-10.1)
[2024-01-17 18:19] LABS: CREATININE 0.8 mg/dL (0.55-1.3)
[2024-01-17] MEDS: IBUPROFEN 800 MG/8 ML IJ IVPB PRN (20:02)
[2024-01-18] MEDS: ZOLPIDEM TARTRATE 5 MG TABLET PO PRN (02:23)
[2024-01-18] MEDS: LEVOTHYROXINE NA 25 MCG TABLET (FP) PO SCH (06:34)
[2024-01-18 08:31] LABS: HEMATOCRIT 37.6 % (32.4-45.2); HEMOGLOBIN 12.2 GM/dL (10.7-15.3); MCH 27.2 pg (25.7-33.7); MCHC 32.5 g/dl (32.0-36.0); MEAN CELL VOLUME 83.9 fl (80-96); MEAN PLT VOLUME 9.7 fl (7.5-11.1); PLATELET COUNT 230 10^3/uL (134-434); RBC 4.49 M/mm3 (3.60-5.2); RDW 14.6 % (11.6-15.6); WHITE BLOOD COUNT 14.6 K/mm3 (4.0-10.0)
[2024-01-18 08:42] LABS: POTASSIUM 4.1 mmol/L (3.5-5.1)
[2024-01-18 08:44] LABS: BLOOD UREA NITROGEN 10.1 mg/dL (7-18); CALCIUM 9.1 mg/dL (8.5-10.1)
[2024-01-18 08:48] LABS: CREATININE 0.7 mg/dL (0.55-1.3)
[2024-01-18] MEDS: DOCUSATE SODIUM 100 MG CAPSULE (FP) PO PRN (08:49)
[2024-01-18 09:50] VITALS: BP 110/70; PULSE 102; RESP 20; TEMP 97.6
[2024-01-18] MEDS ORDERED: LOSARTAN POTASSIUM 50 MG TABLET PO SCH (10:00)
[2024-01-18] MEDS: LOSARTAN POTASSIUM 50 MG TABLET PO SCH (10:11)
[2024-01-18] MEDS: ENOXAPARIN NA (PORCINE) 40 MG/0.4 ML DISP.SYRIN SQ SCH (10:41)
== END 2024-01-18 11:05 | disposition home or self-care (01) ==
LOC: JASUSAT 04:13 → J3W 12:09 → JASUSAT 01-18 11:05
PROVIDERS: ATTEND Obstetrics & Gynecology
PROC: 0UT94ZZ Resection of Uterus, Percutaneous Endoscopic Approach (ICD-10-PCS; principal; 2024-01-17 07:30)
PROC: 0UT74ZZ Resection of Bilateral Fallopian Tubes, Percutaneous Endoscopic Approach (ICD-10-PCS; 2024-01-17 07:30)
DX: D25.9 Leiomyoma of uterus, unspecified (principal); N83.8 Other noninflammatory disorders of ovary, fallopian tube and broad ligament
CPT/HCPCS: 58571; S2900; 36415; 80048; 85027; 86850; 86900; 86901; 88305-TC; 88307-TC; 94010; 94640; 94760; J0131